=== PATIENT | female | born 1955 | race Caucasian/White ===

== ENCOUNTER 2018-10-09 05:14 | Day surgery (SDC) ==
--- NOTE | 2018-10-06 13:45 | EKG Report ---
Test Performed on : 10/06/2018 1:40:01 PM Test Reason : pat Blood Pressure : / mmHG Vent. Rate : 060 BPM Atrial Rate : 060 BPM P-R Int : 162 ms QRS Dur : 088 ms QT Int : 422 ms P-R-T Axes : 063 014 040 degrees QTc Int : 422 ms Normal sinus rhythm. Possible Left atrial enlargement Borderline ECG No previous ECGs available Confirmed by Moody Coley MD ([id number]) on 10/11/2018 9:28:22 PM
[2018-10-06 13:57] LABS: BASO# 0.02 X1000 (0.0-0.2); BASO% 0.3 % (0.0-0.8); EOS# 0.18 X1000 (0.0-0.7); EOS% 2.4 % (0.0-10.0); HEMATOCRIT 42.4 % (37.0-47.0); HEMOGLOBIN 13.5 g/dL (12.0-16.0); IMM GRAN# 0.02 X1000 (0.0-0.04); IMM GRAN% 0.3 % (0.0-0.5); LYMPH# 2.04 X1000 (1.2-3.4); MCH 26.9 PG (27-31); MCHC 31.8 g/dL (33-37); MCV 84.6 FL (81-99); MONO# 0.53 X1000 (0.11-0.59); NEUT# 4.76 X1000 (1.4-6.5); PLT 261 X1000 (130-400); RBC 5.01 XMIL (4.2-5.4); RDW 15.1 % (11.5-14.5); WBC 7.55 X1000 (4.8-10.8)
[2018-10-06 14:17] LABS: AGAP 11; BUN 13 mg/dL (8-22); CALCIUM 9.5 mg/dL (8.8-10.2); CHLORIDE 103 mmol/L (98-107); COSMO 281; CREATININE 0.6 mg/dL (0.5-0.9); ESTIMATED GFR > 60; GLUCOSE 87 mg/dL (70-104); POTASSIUM 4.7 mmol/L (3.5-5.1); SODIUM 141 mmol/L (136-145); TCO2 27 mmol/L (25-35)
--- NOTE | 2018-10-07 09:50 | HISTORY AND PHYSICAL ---
DATE OF SURGERY: 10/09/2018. HISTORY: The patient is a 63-year-old female who underwent a robotic supracervical hysterectomy, abdominal sacrocolpopexy, mid urethral sling, and distal posterior compartment defect repair in March of 2016. Since that time, she has done well. However, she does note that she has a very difficult job in terms of heavy lifting, working 12 hour shifts, and she also struggles with significant constipation. The patient is having to do 40 pounds of lifting routinely as part of her job and recently had an episode that she describes as a machine blowout that requires a significant amount of above head lifting and pulling to correct. During that time, she started feeling increased difficulty with discomfort and increased pressure pelvic-jackson and so she presented for evaluation. Findings upon her evaluation was a failure of the sacrocolpopexy with point C at +4 with a hard cough. We discussed pessary management. I also discussed collagen synthesis with the patient because I noted in her prior surgical operative report that she had difficulty with the tissue when we were working intraoperatively. We discussed this at length. We discussed pessary management. I discussed that this was the only failure I had in this procedure, and consideration of possible job change due to the stress that is being placed on the pelvic floor. She and her definitely were wanting to pursue some type of job change within her company that does not place so much pressure on the pelvic floor, and she is wishing to proceed with surgical correction of her prior failure. The risks and benefits of this were explained at length. We discussed the possible need for an open procedure. She understands, and she and her were wishing to proceed. PAST MEDICAL HISTORY: Positive for hypertension, osteoarthritis, breast cancer. PAST SURGICAL HISTORY: Positive for a bilateral breast lumpectomy and as noted above. She is noted to be a para 3-0-0-3. ALLERGIES: None. CURRENT MEDICATIONS: Anastrozole 1 mg, amlodipine 10, clonazepam 0.5, and p.r.n. medications. FAMILY HISTORY: Positive for breast cancer in her mother and 2 maternal aunts. SOCIAL HISTORY: As noted above, significant amount of lifting with her primary line of work. PHYSICAL EXAMINATION: VITAL SIGNS: BMI is 29. HEENT: Normocephalic, atraumatic. PERRLA. EOMI. No thyromegaly. CV: Regular rate and rhythm without murmur, gallop, or rub. PULMONARY: Clear to auscultation and percussion. ABDOMEN: Soft. : See the above examination described in the history. NEUROLOGIC: Afocal. EXTREMITIES: Without clubbing, cyanosis, or edema. ASSESSMENT AND PLAN: The patient is admitted at this time for correction of her prior abdominal sacrocolpopexy failure. The risks and benefits have been discussed at length. cc: Anurag Warren MD
[2018-10-09] MEDS ORDERED: KEFZOL 1 GM/D5W 2 GM/100 ML IVPB ONE (05:52)
[2018-10-09] MEDS ORDERED: LR 1,000 ML ONE ×3 (05:52→09:36)
[2018-10-09] MEDS ORDERED: XYLOCAINE-MPF 2% ONE (06:14)
[2018-10-09] MEDS ORDERED: VERSED ONE (06:14)
[2018-10-09] MEDS ORDERED: QUELICIN (DOSE) ONE (06:15)
[2018-10-09] MEDS ORDERED: NORCURON ONE (06:15)
[2018-10-09] MEDS ORDERED: FENTANYL ONE (06:15)
[2018-10-09] MEDS ORDERED: DIPRIVAN 1% ONE (06:15)
[2018-10-09] MEDS ORDERED: SODIUM CHLORIDE 0.9% 10 ML ONE (06:15)
--- NOTE | 2018-10-09 06:44 | H&P REVIEW ---
H&P Update H&P Review: H&P was reviewed and patient was examined, No change has occurred in the patient's condition
[2018-10-09] MEDS ORDERED: SENSORCAINE 0.25%/EPI 1:200,000 ONE (06:46)
[2018-10-09] MEDS ORDERED: D10W 1,000 ML ONE (06:46)
[2018-10-09] MEDS ORDERED: TRANSDERM-SCOP ONE (06:55)
[2018-10-09] MEDS ORDERED: PEPCID ONE (06:55)
[2018-10-09] MEDS ORDERED: TORADOL ONE (07:25)
[2018-10-09] MEDS ORDERED: ZOFRAN ONE (07:25)
[2018-10-09] MEDS ORDERED: DECADRON ONE (07:25)
[2018-10-09] MEDS ORDERED: ROBINUL ONE (07:57)
[2018-10-09] MEDS ORDERED: NEOSTIGMINE ONE (07:57)
[2018-10-09 08:00] LABS: URINE SOURCE CATH
[2018-10-09 08:07] LABS: BILIRUBIN URINE NEGATIVE (NEGATIVE); BLOOD URINE NEGATIVE (NEGATIVE); COLOR YELLOW; GLUCOSE URINE NEGATIVE (NEGATIVE); KETONE URINE NEGATIVE (NEGATIVE); LEUKOCYTES URINE NEGATIVE (NEGATIVE); NITRITE URINE NEGATIVE (NEGATIVE); PH URINE 6.5; PROTEIN URINE NEGATIVE (NEGATIVE); SP GRAVITY URINE 1.012; TURBIDITY URINE CLEAR (CLEAR); UROBILINOGEN URINE NORMAL (NORMAL)
[2018-10-09 08:09] LABS: UR EPITHELIAL CELLS <10 /HPF (<10); URINE BACTERIA NEGATIVE /HPF; URINE RBC <10 /HPF (<10); URINE WBC <10 /HPF (<10)
[2018-10-09] MEDS ORDERED: LASIX ONE (08:16)
[2018-10-09] MEDS ORDERED: METROGEL-VAGINAL 0.75% GEL ONE (08:51)
[2018-10-09] MEDS ORDERED: NORCO-5 PO PRN (10:52)
[2018-10-09] MEDS ORDERED: ZOFRAN ODT PO PRN (10:52)
--- NOTE | 2018-10-09 11:15 | OPERATIVE NOTE ---
PROCEDURE DATE: 10/09/2018 POSTOPERATIVE DIAGNOSIS: Recurrent pelvic organ prolapse. POSTOPERATIVE DIAGNOSES: Recurrent pelvic organ prolapse, prior prosthetic fracture. PROCEDURES PERFORMED: da Nohemi abdominal sacrocolpopexy, mid anterior compartment defect repair, moderate to extensive lysis of adhesions. SURGEON: Anurag Warren MD. ANESTHESIA: General. ESTIMATED BLOOD LOSS: 25 mL. BRIEF HISTORY: The patient is a 63-year-old female with a history of prior mesh reconstruction by abdominal sacrocolpopexy, who has a job that entails a significantly large amount of lifting. Recently at her job she had an equipment failure which was sudden and caused some traumatic issues with her resulting and a recurrence in her prolapse that occurred the very next day. Upon evaluation she had had a mesh failure and she is admitted at this time for reconstruction. OPERATIVE FINDINGS: The patient was found have moderate adhesions in the right upper quadrant starting around the ligamentum Treitz and coming down across the iliac crest. She was found to have mesh still present in the vaginal area, and then we could also find its connection to the anterior longitudinal ligament; however, approximately 4 cm below the attachment to the anterior longitudinal ligament as it came across the iliac crest the mesh seemed to disappear consistent with a fracture in the third arm. No other abnormalities were noted other than the adhesions from her prior surgery. The bladder was found to be within normal limits with efflux of urine from both ureters after completion of the procedure. DESCRIPTION OF PROCEDURE: The patient was taken to the operating room and placed in the supine position. After adequate general anesthesia was obtained she was placed in the [facility]. Her abdomen and vagina was prepped and draped in the usual fashion. A repeat supraumbilical incision was made after infiltration of 0.25% Marcaine with epinephrine and the 12 mm port and sheath were introduced. At this time the left-sided ports were placed in the typical fashion for robotic surgery with sacrocolpopexy procedure, and then the right-sided port was placed in a similar fashion; however, it was slightly inferior or caudal to our normal site based on the adhesions on the right-hand side. At this time the patient was placed in the deep Trendelenburg position. Anguiano catheter was placed and the EEA sizers were placed within the vagina and the rectum. The robot was docked in the usual fashion; however, we placed the scissors in the left hand and began initially with dissection on the right-hand side due to the proximity of the adhesions to our right-sided port. We performed adhesiolysis for approximately 15 minutes to drop these adhesions down, they actually were coming from the cephalad portion of the peritoneal cavity and these were easily taken down sharply. The third arm was then placed and we changed our equipment back to the normal presentation with hot scissors in the right hand, the PK in the left hand, and the Simone grasper in the third arm. We spent approximately 30 to 45 minutes performing adhesiolysis and actually found the mesh attachment at the sacral promontory and it came down approximately 2 to 3 cm and then it was lost. When we pulled on that we could see the peritoneum moving, but there was not the same band of tissue that we were seeing coming from the sacral promontory, so we turned our attention more towards the pelvis and elevating the vagina with the EEA Sizer we could see where the mesh came in and could see where it was coming down the right-hand side below the peritoneum, but then as we came up from there cephalad we could not find the mesh any longer and only found the fold of the peritoneum, so somewhere in that area the mesh had fractured and retracted. Decision was made to place a 2nd piece of mesh on top of the first, we trimmed approximately 3 to 4 cm anteriorly and approximately 6 cm posteriorly. We placed the mesh intra-abdominally and then secured the anterior arm of the mesh with 6 sutures using Pecos-Kermit suture. Initial surgeon's throw and 4 half throws were placed after this and we placed it through our prior dissection and prior mesh attachment, which was still well attached to the anterior and posterior knapp of vaginal mucosa. The posterior arm was attached with 4 to 6 sutures again at the same knot arrangement. We brought the third arm up to the promontory, we dissected down as well as we could; however, our prior mesh actually caused us to not be able to visualize the anterior longitudinal ligament. It was still present so we actually placed a single suture through the third arm through our prior mesh area, and then we actually tried to reach into the longitudinal ligament by going deeper than normal. We brought this out and tied this off. We had excellent support in this area, there was no movement at all. We definitely had solid tissue attached to it. Because of her obesity, body habitus and proximity to the vessels decision was made not to place a 2nd suture in this area. I was not feeling comfortable with our inability to actually visualize the anterior longitudinal ligament, and was worried about the depth of needle penetration yet obtaining a good specimen. At this point we had very good attachment with no movement whatsoever and decision was made to stop. The third arm was trimmed in the usual fashion. We could not reperitonealize because the peritoneum really had not been dissected out too well, we were unable to really visualize this, so we actually used the epiploica from the ascending and then descending colon to cover the mesh. We were very careful not to have any small holes that would allow for small bowel seepage into an area. After completion of this, our blood loss at this time had been approximately 10 mL and decision was made to terminate this portion of the procedure. All equipment was removed from the patient's abdomen. The robot was undocked in the usual fashion. The Amilcar-Gee was utilized to close the fascia and deep layers of both the umbilical incision and the assistance port, which was in the left upper quadrant. A 4-0 Vicryl ligature was utilized in a subcuticular fashion to reapproximate all 5 skin edges. Sponge count, instrument count and needle count was correct x3 at this point. Going below vaginally we had again excellent apical support, decision was made to proceed with a small anterior distal repair that was close to the UV neck just because I was not happy with this, and this is probably a leftover from our prior procedure that had not been fully corrected. We grasped the midline with Allis clamps and injected approximately 20 mL of 0.25% Marcaine with epinephrine diluted 50% with normal saline. A sagittal incision was made, and Metzenbaum scissors were utilized to dissect out laterally. We then used interrupted 0 Vicryl ligature to reapproximate the fascia in the midline, and we trimmed approximately 2 cm of vaginal mucosa off from each side and then closed this incision with a running 2-0 Vicryl ligature. Cystoscopy had been performed. Both ureters were effluxing urine. There was no evidence of any abnormality whatsoever in the bladder. Decision was made to terminate the procedure. Anguiano catheter was placed and vaginal pack was placed. Sponge count, instrument count and needle count was correct x3. The patient was taken out of low the adjustable stirrups, awakened and taken to the recovery room with vital signs stable. cc: Anurag Warren MD
--- NOTE | 2018-10-09 13:57 | PROGRESS NOTE ---
DATE: 10/09/2018 TIME SEEN: Approximately 1:30 p.m. SUBJECTIVE: The patient is alert and oriented x3, resting well, sitting in her bed. Her is in the room. OBJECTIVE: Vital Signs: Afebrile. Vital signs are stable. Extremities: Her incisions are intact. ASSESSMENT AND PLAN: We reviewed the operative findings with the patient and her again. We discussed the plan of management for the rest of the day today. We will continue with the Anguiano catheter through the day. We will remove it in the morning and discharge the patient home after a voiding trial if she has had a good postoperative course. cc: Anurag Warren MD
[2018-10-09] MEDS: TORADOL IV SCH ×2 (14:30→21:40)
[2018-10-09] MEDS: LR 1,000 ML IV SCH (14:30)
[2018-10-09] MEDS: PERIDEX MT SCH (20:23)
[2018-10-09] MEDS: COLACE PO SCH (20:23)
[2018-10-10] MEDS: LR 1,000 ML IV SCH ×3 (01:36→08:54)
[2018-10-10] MEDS: TORADOL IV SCH ×2 (03:26→08:55)
[2018-10-10] MEDS: PERIDEX MT SCH (08:55)
[2018-10-10] MEDS: COLACE PO SCH (08:56)
[2018-10-10] MEDS ORDERED: PATIENT'S OWN MED PO SCH (09:00)
[2018-10-10] MEDS ORDERED: PRINIVIL PO SCH (09:00)
[2018-10-10] MEDS ORDERED: ARIMIDEX PO SCH (09:00)
[2018-10-10 15:28] VITALS: BP 120/69
--- NOTE | 2018-10-10 17:03 | DISCHARGE SUMMARY ---
ADMISSION DATE: 10/09/2018 DISCHARGE DATE: 10/10/2018 PRINCIPAL DIAGNOSIS: Pelvic organ prolapse. PROCEDURE: Da Onhemi abdominal sacrocolpopexy with lysis of adhesions and cystoscopy. HISTORY: The patient is a 63-year-old female who underwent a robotic sacrocolpopexy approximately 12 to 16 months ago but whose job involves a lot of heavy lifting. The patient had a sudden recurrence of her prolapse immediately after a job required her to do some excessively heavy lifting due to a machine "blowout." Upon evaluation she was found to have total prolapse of the vaginal apex again. She was admitted now for surgical correction. HOSPITAL COURSE: Patient underwent the above-stated procedure. Blood loss at that time was less than 20 mL. Postoperative course has been uncomplicated. She is currently being discharged after completion of her voiding trial. DISCHARGE MEDICATIONS: [place], Colace and Toradol. She was instructed on regular diet and decreased activity and is to return in 3 weeks. cc: Anurag Warren MD
== END 2018-10-10 16:08 | disposition home or self-care (01) ==
LOC: OR 05:14 → 4N 05:14 → OR 10-10 16:08
PROVIDERS: ATTEND Obstetrics & Gynecology